=== PATIENT | female | born 1960 | race Caucasian/White ===

== ENCOUNTER 2017-03-12 00:02 | Inpatient (IN) | payer BC ==
[~2017-03-12] VITALS: Ht 170.2 cm; Wt 59.4 kg
[2017-03-12] VITALS (91 sets, daily range): BP systolic 44–196; BP diastolic 29–110
--- NOTE | 2017-03-12 00:02 | NUR ---
BIBA TO ER BED 3
--- NOTE | 2017-03-12 00:04 | NUR ---
56 YO F BIBA FULL ARREST, SEE CODE SHEAT.
--- NOTE | 2017-03-12 00:30 | NUR ---
PT CHRIS DOWN, PULSE LOST. CALLED BLUE CALLED, SEE CODE SHEAT.
--- NOTE | 2017-03-12 00:33 | NUR ---
POST CODE ASSESSMENT DONE. PULSE PRESENT VERYFIED BY ER MD WITH DROPPLER. PT TACHY ON MONITOR, REFER TO CODE SHEAT FOR VS.
[2017-03-12 00:38] LABS: HEMATOCRIT 41.5 % (36-48); HEMOGLOBIN 13.4 g/dL (12.0-16.0); MEAN CORPUSCULAR HEMOGLOBIN 29 pg (27-31); MEAN CORPUSCULAR HGB CONC 32 g/dL (33-37); MEAN CORPUSCULAR VOLUME 90 fL (80-94); PLATELET COUNT (AUTO) 264 K/uL (140-450); RED BLOOD CELL COUNT(AUTO) 4.61 MIL/uL (4.20-5.40); RED CELL DISTRIBUTION WIDTH 13.1 % (11.6-13.7); WHITE BLOOD COUNT (AUTO) 7.6 K/uL (4.8-10.8)
[2017-03-12] MEDS ORDERED: EPINEPHrine 1:1000 1 MG in DEXTROSE 5% 250 ML IV SCH (00:45)
--- NOTE | 2017-03-12 00:45 | NUR ---
PT PLACED ON VENTILATOR. VENT SETTING Fio2 60, VT 600, R/RATE 14, FLOW 40, PEEP 5 AND PMAX 60.
[2017-03-12 00:53] LABS: BAND % (MANUAL) 10 % (0-8); EOSINOPHILS % (MANUAL) 4 % (0-4); LYMPHOCYTES % (MANUAL) 72 % (20-46); MONOCYTES % (MANUAL) 6 % (5-12); NEUTROPHILS % (MANUAL) 8 (43-65)
--- NOTE | 2017-03-12 01:05 | NUR ---
EPINEPHRINE DRIP STARTED AT 1 MCG/MIN, AND NS ML/HR. SEE TITRATIONS FOR F/U.
[2017-03-12 01:16] LABS: INR 1.2 (0.8-1.2); PROTHROMBIN TIME 12.1 secs (10.8-13.4)
[2017-03-12 01:35] LABS: ALBUMIN 2.5 g/dL (3.4-5.0); ANION GAP 22.8 (8-16); CALCIUM 7.4 mg/dL (8.5-10.1); CARBON DIOXIDE 15.9 mmol/L (21-32); CREATININE 1.6 mg/dL (0.6-1.3); POTASSIUM 3.7 mmol/L (3.5-5.1); TOTAL BILIRUBIN 0.2 mg/dL (0.0-1.0); TOTAL PROTEIN, SERUM 5.6 g/dL (6.4-8.2)
--- NOTE | 2017-03-12 01:35 | NUR ---
Kayy esquivel in EDM - 03/12/17 at 0432 by SCARLETT EPINEPHRINE DRIP INCREASED TO 2 MCG/KG/MIN /11.8 ML/HR, AND NS INCREASED TO 250ML/HR D/T DECREASED IN BP.
--- NOTE | 2017-03-12 01:35 | NUR ---
EPINEPHRINE DRIP INCREASED TO 2 MCG/MIN /11.8 ML/HR, AND NS INCREASED TO 250ML/HR D/T DECREASED IN BP.
--- NOTE | 2017-03-12 01:39 | NUR ---
RECEIVED PATIENT IN ER FROM PARAMEDICS. PATIENT WAS UNRESPONSIVE AND CPR DONE IN ER. INTUBATION DONE BY ER DOCTOR AND RT CONNIE AND BRIANNA PRESENT. PATIENT HAS 7.5 ETT AT 23 CM LIP LINE. XRAY DONE TO VERIFY TUBE POSITION. PATIENT PLACED ON VENT. PATIENT BP WAS ELEVATED .
[2017-03-12] MEDS ORDERED: NACL 0.9% 1,000 ML IV ONE (01:40)
--- NOTE | 2017-03-12 01:42 | NUR ---
EPINEPHRINE INCREASED TO 3 MCG/MIN.
--- NOTE | 2017-03-12 01:56 | NUR ---
EPINEPHRINE TITRATED TO 4 MCG/MIN/.
[2017-03-12] MEDS ORDERED: DOPamine 400 MG/D5W PREMIX 250 ML IV ONE ×2 (02:14→03:00)
--- NOTE | 2017-03-12 02:17 | NUR ---
DOPAMINE STARTED 5MCG/KG/MIN PER ER MD VERBAL ORDERS.
--- NOTE | 2017-03-12 02:29 | NUR ---
DOPAMINE INCREASED TO 10MCG/KG/MIN THROUGH IO.
--- NOTE | 2017-03-12 02:30 | NUR ---
Noted IV site left upper arm with epinephrine and dopamine infusing extravasated. Site is cool, swollen, ecchymotic and hard. Notified Dr Lentz. Regitine protocol to be implemented.
--- NOTE | 2017-03-12 02:40 | NUR ---
ER MD NOTIFIED OF INCREASED IN HR AFTER INCREASING DOPAMINE DRIP. PER MD TO CONT MONITORING PT.
--- NOTE | 2017-03-12 02:41 | NUR ---
EPINEPHRINE TITRATED TO 3MCG/MIN.
[2017-03-12 02:43] LABS: BLOOD GAS PCO2 45.7 mmHg (20-50); BLOOD GAS PO2 112.8 mmHg
[2017-03-12] MEDS ORDERED: PHENTOLAMINE 5 MG/2 ML VIAL ONE (02:43)
[2017-03-12 02:44] LABS: BLOOD GAS HCO3 15.6 mmol/L; BLOOD GAS O2 SAT% 97.1 % (92.0-98.5)
--- NOTE | 2017-03-12 02:44 | NUR ---
DOPAMINE TITRATED TO 7MCG/KG/MIN.
[2017-03-12] MEDS ORDERED: PHENTOLAMINE 5 MG/2 ML VIAL SUBQ ONE (03:00)
--- NOTE | 2017-03-12 03:00 | NUR ---
EPINEPHRINE TITRATED TO 2MCG/MIN.
[2017-03-12] MEDS ORDERED: NACL 0.9% 1,000 ML IV SCH (03:11)
[2017-03-12] MEDS ORDERED: MORPHINE SULFATE 2 MG/ML SYR IVP PRN ×2 (03:15→10:25)
[2017-03-12] MEDS ORDERED: DOCUSATE SODIUM 100 MG GELCAP PO PRN ×2 (03:15→10:25)
[2017-03-12] MEDS ORDERED: HYDROcodone/APAP 7.5/325 MG 1 TAB PO PRN ×2 (03:15→10:25)
[2017-03-12] MEDS ORDERED: ONDANSETRON 4 MG/2 ML VIAL IM/IVP PRN ×2 (03:15→10:25)
[2017-03-12] MEDS ORDERED: ACETAMINOPHEN 325 MG TAB PO PRN ×2 (03:15→10:25)
--- NOTE | 2017-03-12 03:19 | NUR ---
DOPAMINE TITRATED TO 10 MCG/KG/MIN.
--- NOTE | 2017-03-12 03:23 | NUR ---
EPINEPHRINE TITRATED TO 4 MCG/MIN, AND DOPAMINE TITRATED TO 15 MCG/KG/MIN.
--- NOTE | 2017-03-12 03:30 | NUR ---
CONSENT FOR CENTRAL LINE OBTAINED BY CHARGE NURSE FROM FAMILY, WELL FAMILY NOTIFIED BY CHARGE NURSE OF INFILTRATION TO R UPPER ARM.
--- NOTE | 2017-03-12 03:50 | NUR ---
Patient will be admitted to care of DR CARDENAS. Admited to ICU. Will go to roomICU 5. Belongings list completed. Report to NAA GARCIA.
--- NOTE | 2017-03-12 03:56 | NUR ---
PT TRASFERED TO ICU VIA GURNEY. BVM BY RT. ACCOMPANIED BY ME PRIMARY NURSE, EMT, AND CHARGE NURSE. LENS EXAMINER ON GURNEY.
--- NOTE | 2017-03-12 04:00 | NUR ---
PT ARRIVED ON UNIT FROM ER VIA GURNEY AT THIS TIME. PT UNRESPONSIVE. PUPILS ARE FIXED AND DILATED. EXTREMITIES ARE FLACCID. PT IS ETT TO VENT AT THIS TIME. CURRENT SETTINGS AT FIO2 60%, VT 600, AC 14, PEEP 5 WITH NO S/S OF ACUTE RESP DISTRESS NOTED AT THIS TIME. GROOVING LATHE TENDER SHOWS ST AT THIS TIME OF HR 138. PT HAS NG-TUBE IN RIGHT NARE. PT HAS RIGHT LEG I/O IV SITE RUNNING NS @60ML/HR, EPINEPHRINE DRIP 4MCG/MIN, DOPAMINE AT 15MCG/MIN AT THIS TIME. PT LEFT UPPER ARM REDNESS NOTED. PT HAS LOMBARDI CATHETER IN PLACE DRAINING YELLOW URINE VIA GRAVITY. BED IN LOW POSITION. HOB UP 30 DEGREES. WILL CONTINUE TO CLOSELY MONITOR.
[2017-03-12 04:06] LABS: APPEARANCE,URINE SL CLOUDY (CLEAR); BILIRUBIN,URINE NEGATIVE (NEGATIVE); BLOOD, URINE 3+ (NEGATIVE); COLOR,URINE YELLOW (YELLOW); LEUKOCYTE ESTERASE ,URINE NEGATIVE (NEGATIVE); NITRITE, URINE NEGATIVE (NEGATIVE); PH,URINE 6.5 (5.0-9.0); PROTEIN,URINE 2+ (NEGATIVE); UGLUCOSE 1+ (NEGATIVE); UROBILINOGEN,URINE 0.2 EU/dL (0.2 - 1)
--- NOTE | 2017-03-12 04:28 | NUR ---
ER MD DR MOTLEY HERE ON THE UNIT TO START CENTRAL LINE INSERTION. PER DR MOTLEY OK TO START ON LEVOPHED DRIP. WILL FOLLOW DR'S ORDERS
[2017-03-12] MEDS ORDERED: NOREPINEPHRINE 4 MG/4 ML VIAL IV ONE (04:36)
[2017-03-12] MEDS: NOREPINEPHRINE 8 MG in DEXTROSE 5% 250 ML IV PRN ×4 (04:45→19:51)
[2017-03-12 04:51] LABS: BACTERIA,URINE FEW /HPF (None Seen); WBC,URINE 0-5 (RARE) /HPF (0-5)
[2017-03-12 04:52] LABS: URINE AMORPHOUS URATE 4+ /HPF (None Seen)
[2017-03-12] MEDS ORDERED: DOPamine 400 MG/D5W PREMIX 250 ML IV SCH (05:00)
--- NOTE | 2017-03-12 05:05 | NUR ---
TOBIAS MOTLEY COMPLETED CENTRAL LINE INSERTION. PER TOBIAS ALBRIGHT OK TO USE FEMORAL CENTRAL LINE.
--- NOTE | 2017-03-12 05:30 | NUR ---
DAUGHTER LINDA AND SON JAKE ON UNIT AT THIS TIME.
[2017-03-12 06:21] LABS: CHOL/HDL RATIO 5.1 (1-4.5); FREE T4 (FREE THYROXINE) 0.7 ng/dL (0.76-1.46); MAGNESIUM 2.8 mg/dL (1.8-2.4); THYROID STIMULATING HORMONE 2.59 uIU/mL (0.34-3.74)
--- NOTE | 2017-03-12 06:31 | NUR ---
DOPAMINE TAPERED AND DISCONTINUED AT THIS TIME.
--- NOTE | 2017-03-12 06:32 | NUR ---
DR ALMEIDA HERE ON THE UNIT TO SEE THE PATIENT AT BEDSIDE.
[2017-03-12 06:45] LABS: PHOSPHORUS 9.1 mg/dL (2.5-4.9)
--- NOTE | 2017-03-12 06:47 | NUR ---
RECEIVED PT ON CARESCAPE ON A/C 14 VT 600 PEEP5 FIO2 60 ALARMS ARE 0N AND FUNCTIONAL BMV HOB PTS ET TUBE SIZE 7.5 IS SECURE 23 CM ANCHOR FAST IN PLACE BS DIMINISHED I\L SX NON-PRODUCTIVE VENT PLUGGED INTO RED OUTLET PT IN HF NOT AWAKE AT THIS TIME NO APPARENT DISTRESS NOTED
[2017-03-12 06:59] LABS: HEMATOCRIT 43.9 % (36-48); HEMOGLOBIN 14.4 g/dL (12.0-16.0); MEAN CORPUSCULAR HEMOGLOBIN 29 pg (27-31); MEAN CORPUSCULAR HGB CONC 33 g/dL (33-37); MEAN CORPUSCULAR VOLUME 89 fL (80-94); PLATELET COUNT (AUTO) 346 K/uL (140-450); RED BLOOD CELL COUNT(AUTO) 4.94 MIL/uL (4.20-5.40); RED CELL DISTRIBUTION WIDTH 13.1 % (11.6-13.7); WHITE BLOOD COUNT (AUTO) 21.3 K/uL (4.8-10.8)
--- NOTE | 2017-03-12 07:10 | NUR ---
BERNARDB RESULTS GIVEN TO DR. ALMEIDA
[2017-03-12 07:14] LABS: BLOOD GAS PCO2 43.7 mmHg (20-50); BLOOD GAS PO2 91.6 mmHg
[2017-03-12 07:15] LABS: BLOOD GAS BASE EXCESS -12.1 mmol/L (-2.0-2.0); BLOOD GAS HCO3 15.9 mmol/L
[2017-03-12 07:20] LABS: BAND % (MANUAL) 18 % (0-8); NEUTROPHILS % (MANUAL) 74 (43-65)
[2017-03-12 07:21] LABS: EOSINOPHILS % (MANUAL) 1 % (0-4); LYMPHOCYTES % (MANUAL) 5 % (20-46); MONOCYTES % (MANUAL) 2 % (5-12)
--- NOTE | 2017-03-12 07:23 | NUR ---
ENDORSED PLAN OF CARE TO DAY NURSE NAA PEDRO FOR TRANSFER OF CARE. PT VITALS STABLE AT THIS TIME
--- NOTE | 2017-03-12 07:25 | NUR ---
RECEIVED REPORT FROM JOSE JACOME. PT UNRESPONSIVE TO NAME STIMULI OR TACTILE STIMULI. PUPILS ARE FIXED AND DILATED. NO GAG REFLEX. EXTREMITIES ARE FLACCID. PT IS ETT TO VENT AT THIS TIME. CURRENT SETTINGS AT FIO2 60%, VT 600, AC 14, PEEP 5 WITH NO S/S OF ACUTE RESP DISTRESS NOTED . BEDSIDE MONITOR SHOWS ST. NG-TUBE IN RIGHT NARE. CENTRAL LINE IN RIGHT FEMORAL RUNNING NS @60ML/HR AND LEVOPHED AT 30 MCG/MIN. PT LEFT UPPER ARM REDNESS NOTED. LOMBARDI CATHETER IN PLACE DRAINING YELLOW URINE VIA GRAVITY. BED IN LOW POSITION. HOB UP 30 DEGREES. WILL CONTINUE TO CLOSELY MONITOR.
[2017-03-12 07:29] LABS: ALBUMIN 2.7 g/dL (3.4-5.0); ANION GAP 15.6 (8-16); CALCIUM 7.2 mg/dL (8.5-10.1); CARBON DIOXIDE 19.4 mmol/L (21-32); CREATININE 1.6 mg/dL (0.6-1.3); TOTAL BILIRUBIN 0.3 mg/dL (0.0-1.0); TOTAL PROTEIN, SERUM 5.9 g/dL (6.4-8.2)
--- NOTE | 2017-03-12 07:30 | NUR ---
0730 TO 0743 PT TAKEN AND RETURNED TO C-SCAN WITHOUT INCIDENT Addendum: 03/12/17 at 0754 by Joselyn Lima RT RETURNED TI ICU BED 5
[2017-03-12] MEDS ORDERED: DEXTROSE 50% 50 ML SYR IVP PRN (08:20)
[2017-03-12] MEDS ORDERED: CALCIUM ACETATE 667 MG TAB NG SCH (08:21)
[2017-03-12] MEDS ORDERED: LORazepam 50 MG in NACL 0.9% 25 ML IV PRN (08:25)
[2017-03-12] MEDS ORDERED: SODIUM BICARBONATE 8.4% PFS 50 MEQ/50 ML SYR IVP SCH (08:53)
--- NOTE | 2017-03-12 09:08 | NUR ---
PATIENT HAS BEEN SCREENED AND CATEGORIZED HIGH NUTRITION RISK. PATIENT WILL BE SEEN WITHIN 1-2 DAYS OF ADMISSION. 03/12/17-03/13/[address]
[2017-03-12 09:12] LABS: MAGNESIUM 1.9 mg/dL (1.8-2.4); PHOSPHORUS 3.2 mg/dL (2.5-4.9)
--- NOTE | 2017-03-12 09:12 | NUR ---
VENT CHECK BS DIMINISHED AIRWAY IS PATENT
[2017-03-12] MEDS ORDERED: PANTOPRAZOLE 40 MG INJ VIAL IVP SCH (09:16)
[2017-03-12] MEDS: KCL 20 MEQ/WATER INJ PREMIX 100 ML IV SCH ×2 (09:31→13:26)
[2017-03-12] MEDS ORDERED: PHENYTOIN 1,000 MG in NACL 0.9% 100 ML IV SCH ×2 (10:00→11:30)
[2017-03-12] MEDS ORDERED: PHENYTOIN 1,000 MG in NACL 0.9% 100 ML IV ONE (10:15)
[2017-03-12] MEDS ORDERED: PHEN100C3 PO ×2 (10:27→11:11)
--- NOTE | 2017-03-12 10:41 | NUR ---
VENT CHECK BS DIMINISHED AIRWAY IS PATENT
[2017-03-12] MEDS ORDERED: ALBU0.0912 IH (11:12)
[2017-03-12] MEDS: NACL 0.9% 1,000 ML IV SCH ×2 (11:15→17:32)
--- NOTE | 2017-03-12 11:39 | NUR ---
IN TO SEE PT, NOTIFIED PT BP 86/54, HR 105 AT THIS TIME.
[2017-03-12] MEDS ORDERED: OSMITROL 25% 12.5 GM/50 ML VIAL IV ONE (11:40)
[2017-03-12] MEDS ORDERED: PHENYLEPHRINE 10 MG/ML VIAL IV PRN (11:45)
--- NOTE | 2017-03-12 11:48 | NUR ---
03/12/17 RD INITIAL ASSESSMENT COMPLETED PLEASE REFER TO NUTRITION ASSESSMENT UNDER CARE ACTIVITY FOR ESTIMATED NUTRITIONAL NEEDS. 1. WILL HONOR FAMILY DECISIONS REGARDING NUTRITION SUPPORT 2. WHEN MEDICALLY FEASIBLE AND PT TO REMAIN INTUBATED, CONSIDER TF VIA NGT - FIBERSOURCE HN TO START AT 30 ML/HR, ADVANCE TOLERATED TO A GOAL RATE OF 65 ML/HR + ADD PROSOURCE 3X/DAILY (PROVIDES 2052 KCAL, 129 G PROTEIN, 1260 ML FREE WATER - MEETS 100% KCAL+PROTEIN ESTIMATED NEEDS) 3. RD TO FOLLOW-UP 2-3 DAYS; HIGH RISK BENY MELENDEZ, NEETU
[2017-03-12] MEDS ORDERED: EPINEPHrine PFS 0.1 MG/ML SYR IVP ONE (12:00)
[2017-03-12] MEDS ORDERED: CODE BLUE PARTICIPANT 1 EA MISC MC ONE (12:00)
[2017-03-12] MEDS: BLOOD GLUCOSE MONITORING 1 DEV DEV FS SCH ×3 (12:18→21:02)
[2017-03-12] MEDS: INSULIN LISPRO SLIDING SCALE 100 UNITS/ML VIAL SUBQ PRN (12:18)
--- NOTE | 2017-03-12 12:18 | NUR ---
FINGER BLOOD SUGAR CHECKED 157, SLIDING SCALE INSULIN 3 UNITS GIVEN.
[2017-03-12] MEDS: PIPER/TAZO 2.25GM/D5W PREMIX 50 ML IV SCH ×2 (12:19→17:32)
[2017-03-12] MEDS ORDERED: PHENYLEPHRINE 10 MG/ML VIAL IV ONE (12:25)
[2017-03-12] MEDS ORDERED: MANNITOL IV SCH (13:00)
[2017-03-12] MEDS ORDERED: PHENYLEPHRINE 10 MG in NACL 0.9% 250 ML IV PRN (13:10)
--- NOTE | 2017-03-12 13:21 | NUR ---
VENT CHECK BS DIMINISHED PT NOT AWAKE AIRWAY IS PATENT
--- NOTE | 2017-03-12 14:00 | NUR ---
TEGAN FROM [facility] NOTIFIED OF FAMILY'S PLAN TO EXTUBATE PT TOMORROW.
--- NOTE | 2017-03-12 14:39 | NUR ---
DR HITCHCOCK DECREASED VT TO 550
--- NOTE | 2017-03-12 15:21 | NUR ---
VENT CHECK BS DIMINISHED AIRWAY IS PATENT FAMILY MEMBER BEDSIDE
[2017-03-12] MEDS: PHENYLEPHRINE 40 MG in NACL 0.9% 250 ML IV PRN ×2 (16:06→19:50)
--- NOTE | 2017-03-12 16:30 | NUR ---
DAJUAN FROM [facility] HERE TO SEE PT.
--- NOTE | 2017-03-12 16:32 | NUR ---
REPORTED ABG TO DR MALDONADO
[2017-03-12 16:34] LABS: BLOOD GAS HCO3 17.9 mmol/L; BLOOD GAS PH 7.138 (7.35-7.45); BLOOD GAS PO2 84.7 mmHg
[2017-03-12 16:35] LABS: BLOOD GAS BASE EXCESS -11.3 mmol/L (-2.0-2.0); BLOOD GAS O2 SAT% 95.3 % (92.0-98.5)
--- NOTE | 2017-03-12 16:53 | NUR ---
REPORTED ABG TO DR HITCHCOCK INCREASE RR TO 18 NO ABGS
--- NOTE | 2017-03-12 16:56 | NUR ---
VENT CHECK BS DIMINISHED I\L LAVAGE AND SX SM YELLOW PT NOT AWAKE
--- NOTE | 2017-03-12 17:00 | NUR ---
FINGER BLOOD SUGAR CHECKED 139, NO INSULIN COVERAGE NEEDED.
[2017-03-12] MEDS: CALCIUM ACETATE 667 MG TAB NG SCH (17:32)
--- NOTE | 2017-03-12 18:00 | NUR ---
PT IS STILL UNRESPONSIVE, NO S/S OF RESPIRATORY DISTRESS NOTED, TURNED AND REPOSITIONED PT, CLEANED PT. PT ON LEVOPHED AND ZORA SYNEPHRINE DRIP. BP IN NORMAL RANGE AT THIS TIME.
--- NOTE | 2017-03-12 19:03 | NUR ---
REPORT GIVEN TO JOSE JACOME.
--- NOTE | 2017-03-12 19:15 | NUR ---
RECEIVED REPORT FROM DAY NURSE WILLIS, RN FOR TRANSFER OF CARE. PT IS UNRESPONSIVE TO PAIN AND VERBAL STIMULI. PT IS TRACH TO VENT WITH CURRENT SETTINGS AT FIO2 60%, VT 550, AC 18, PEEP 5. WITH NO S/S OF ACUTE RESP DISTRESS NOTED AT THIS TIME. MOBILE MECHANIC SHOWS SR AT THIS TIME. PT HAS RIGHT FEMORAL TLC RUNNING NS AT 140ML/HR, ATIVAN DRIP AT 1MG/HR, LEVOPHED AT 26MCG/KG/MIN AND ZORA-SYNEPHRINE AT 106MCG/MIN. PT HAS NG-TUBE TO RIGHT NARE. PT HAS LOMBARDI CATHETER IN PLACE DRAINING YELLOW URINE VIA GRAVITY. SCDS IN PLACE. BED IN LOW POSITION. HOB UP 30 DEGREES. SAFETY PRECAUTIONS MAINTAINED. WILL CONTINUE TO CLOSELY MONITOR.
--- NOTE | 2017-03-12 19:45 | NUR ---
DAJUAN FROM [facility] HERE ASSISTED IN OBTAINING BLOOD SAMPLES FOR THEIR LABS. IV DRIPS MEDS PAUSED AT THIS TIME. WILL RESUME IMMEDIATELY AFTER COMPLETING LAB DRAWS.
--- NOTE | 2017-03-12 19:51 | NUR ---
RESUMED IV DRIP MEDICATIONS
--- NOTE | 2017-03-12 19:58 | NUR ---
PT OLDEST SISTER ZAIRE AND NUMEROUS FAMILY MEMBERS AND FRIENDS ON UNIT TO SEE PATIENT.
[2017-03-12] MEDS: PHENYTOIN 100 MG CAPER PO SCH (20:47)
--- NOTE | 2017-03-12 21:40 | NUR ---
2130 INCREASED FIO2 TO 100% TO ACHIEVE PAO2 OF 100, PREVIOUS PAO2 ON PAST ABGS INDICATE DOWNWARD TREND. LAST ABG ON 60% WAS 84
--- NOTE | 2017-03-12 22:06 | NUR ---
PT RESTING IN BED. NO SOB NOTED AT THIS TIME. TITRATED LEVOPHED DRIP DOWN TO 24 MCG/KG/MIN. WILL CONTINUE TO CLOSELY MONITOR.
--- NOTE | 2017-03-12 23:04 | NUR ---
[facility] RAILROAD WORKER ON UNIT TO VICE PRESIDENT SALES AND MARKETING SEROLOGY LAB WORK.
[2017-03-13] VITALS (85 sets, daily range): BP systolic 62–140; BP diastolic 25–77
--- NOTE | 2017-03-13 00:01 | NUR ---
RESIDENT DR LIANG HERE ON THE UNIT TO SEE PATIENT.
[2017-03-13] MEDS: PIPER/TAZO 2.25GM/D5W PREMIX 50 ML IV SCH ×5 (00:05→23:42)
[2017-03-13] MEDS: NACL 0.9% 1,000 ML IV SCH ×2 (00:06→07:16)
--- NOTE | 2017-03-13 00:16 | NUR ---
PT RESTING IN BED AT THIS TIME. NO SOB NOTED. PT REPOSITIONED. VAP ORAL KIT PROVIDED. WILL CONTINUE TO CLOSELY MONITOR.
[2017-03-13] MEDS: NOREPINEPHRINE 8 MG in DEXTROSE 5% 250 ML IV PRN ×4 (01:36→20:03)
[2017-03-13] MEDS: PHENYLEPHRINE 40 MG in NACL 0.9% 250 ML IV PRN ×2 (02:12→17:32)
--- NOTE | 2017-03-13 02:14 | NUR ---
PT RESTING IN BED. NO S/S OF ACUTE RESP DISTRESS NOTED AT THIS TIME. SAFETY PRECAUTIONS MAINTAINED. WILL CONTINUE TO CLOSELY MONITOR.
--- NOTE | 2017-03-13 03:59 | NUR ---
MORNING CARE RENDERED. PT CLEANED. LINEN CHANGED. VAP ORAL KIT PROVIDED. NO SOB NOTED AT THIS TIME. PT SUCTIONED. NO GAG REFLEX NOTED. BED IN LOW POSITION. HOB UP. WILL CONTINUE TO CLOSELY MONITOR.
--- NOTE | 2017-03-13 04:30 | NUR ---
CHRISTIE HOPSON FROM [facility] CALLED AND WAS UPDATED ABOUT PT'S CURRENT STATUS.
[2017-03-13] MEDS: PHENYTOIN 100 MG CAPER PO SCH ×3 (05:06→21:43)
--- NOTE | 2017-03-13 05:10 | NUR ---
CHEST XRAY DONE AT BEDSIDE.
--- NOTE | 2017-03-13 05:39 | NUR ---
RESIDENT DR JIMÉNEZ HERE ON THE UNIT TO SEE PATIENT.
[2017-03-13] MEDS: BLOOD GLUCOSE MONITORING 1 DEV DEV FS SCH ×6 (06:40→23:02)
--- NOTE | 2017-03-13 06:47 | NUR ---
REC'D PT ON CARESCAPE VENT SETTING AC18 VT 550 PEEP 5 FIO2 100% ALARMS ON AND FUNCTIONING PROPERLY, AMBU BAG AT SIDE OF VENTILATOR AND VENTILATOR IS PLUGGED INTO RED OUTLET, SXN PT SMALL AMT OF THIN BROWN SECRETIONS, B\S ARE DIMINISHED BILATERALLY, PT IS ORALLY INTUBATED WITH 7.5 ET TUBE SECURED WITH ANCHOR FAST AT 23 CM AT LEFT CORNER OF MOUTH AND SKIN INTEGRITY IS INTACT PT IS RESTING WITH NO SIGNS OF DISTRESS NOTED AT THIS TIME
--- NOTE | 2017-03-13 07:15 | NUR ---
ENDORSED PLAN OF CARE TO NAA SOLARES FOR TRANSFER OF CARE. PT VITALS STABLE AT THIS TIME.
--- NOTE | 2017-03-13 07:45 | NUR ---
SEEN BY DR. WALTERS AND HIS TEAM..
--- NOTE | 2017-03-13 08:00 | NUR ---
BELLE IN THE UNIT, TO MEET WITH FAMILY.
[2017-03-13] MEDS: CALCIUM ACETATE 667 MG TAB NG SCH (08:15)
[2017-03-13] MEDS: PANTOPRAZOLE 40 MG INJ VIAL IVP SCH (08:26)
--- NOTE | 2017-03-13 08:34 | NUR ---
VENT CHECK, NO SXN REQUIRED AT THIS TIME, B\S DIMINISHED AIRWAY IS PATENT
[2017-03-13] MEDS ORDERED: SODIUM BICARBONATE 8.4% 100 MEQ in NACL 0.45% 1,000 ML IV SCH (08:50)
[2017-03-13 09:03] LABS: HEMATOCRIT 42.3 % (36-48); HEMOGLOBIN 13.7 g/dL (12.0-16.0); MEAN CORPUSCULAR HEMOGLOBIN 29 pg (27-31); MEAN CORPUSCULAR HGB CONC 32 g/dL (33-37); MEAN CORPUSCULAR VOLUME 89 fL (80-94); PLATELET COUNT (AUTO) 156 K/uL (140-450); RED BLOOD CELL COUNT(AUTO) 4.76 MIL/uL (4.20-5.40); RED CELL DISTRIBUTION WIDTH 13.6 % (11.6-13.7); WHITE BLOOD COUNT (AUTO) 12.9 K/uL (4.8-10.8)
--- NOTE | 2017-03-13 09:07 | NUR ---
abg drawn on lr without incident and at [address] echevarria with no changes made
[2017-03-13] MEDS ORDERED: FUROSEMIDE 40 MG/4 ML VIAL IVP SCH (09:14)
[2017-03-13 09:20] LABS: BLOOD GAS PCO2 45.2 mmHg (20-50); BLOOD GAS PH 7.192 (7.35-7.45); BLOOD GAS PO2 107.6 mmHg
[2017-03-13 09:21] LABS: BLOOD GAS BASE EXCESS -10.9 mmol/L (-2.0-2.0)
[2017-03-13 09:22] LABS: BLOOD GAS O2 SAT% 97.9 % (92.0-98.5)
--- NOTE | 2017-03-13 09:36 | NUR ---
LASIX 40 MG IVP GIVEN ORDERED.
[2017-03-13 09:44] LABS: BAND % (MANUAL) 20 % (0-8); LYMPHOCYTES % (MANUAL) 17 % (20-46); NEUTROPHILS % (MANUAL) 50 (43-65)
[2017-03-13 09:45] LABS: EOSINOPHILS % (MANUAL) 5 % (0-4); MONOCYTES % (MANUAL) 8 % (5-12)
--- NOTE | 2017-03-13 10:31 | NUR ---
FAXED INITIAL REVIEW TO [facility] [phone] PHONE [phone] PER SIDRA, SENIOR MANAGING DIRECTOR, AUTH FOR I DAY GIVEN ON 03/12/17 NO CM ASSIGNED YET AUTH NO [id number]
[2017-03-13 10:34] LABS: ANION GAP 13.5 (8-16); CALCIUM 7.3 mg/dL (8.5-10.1); CARBON DIOXIDE 21.4 mmol/L (21-32); POTASSIUM 4.9 mmol/L (3.5-5.1)
[2017-03-13 10:40] LABS: ALBUMIN 1.9 g/dL (3.4-5.0); BILIRUBIN,DIRECT 0.8 mg/dL (0.0-0.3); TOTAL BILIRUBIN 1.2 mg/dL (0.0-1.0); TOTAL PROTEIN, SERUM 4.8 g/dL (6.4-8.2)
--- NOTE | 2017-03-13 11:08 | NUR ---
VENT CHECK, SXN PT SMALL AMT OF CLEAR SECRETIONS, B\S ARE DIMINISHED AND RN BECK AT BEDSIDE
[2017-03-13 12:36] LABS: HEMOGLOBIN A1C 5.7 % (4.8-5.6)
[2017-03-13] MEDS ORDERED: INSULIN HUMAN REGULAR 100 UNITS in NACL 0.9% 100 ML IV SCH (12:55)
[2017-03-13] MEDS ORDERED: DOPamine 400 MG/D5W PREMIX 250 ML IV SCH ×2 (13:05→15:00)
--- NOTE | 2017-03-13 13:05 | NUR ---
VENT CHECK, NO SXN NEEDED B\S ARE DIMINISHED BILATERALLY, PT'S HEART RATE HAS INCREASED TO 129 BPM JUAN PABLO ALATORRE AT BEDSIDE
--- NOTE | 2017-03-13 13:45 | NUR ---
MOVED PT FROM [facility] 5 TO ICU 3 PT BAGGED WITH 100% FIO2 BY DR. ALMEIDA AND PLACED ON CARESCAPE VENT WITH SAME VENT SETTINGS BY RT. DE LA O
--- NOTE | 2017-03-13 14:10 | NUR ---
CONSENT FOR A-LINE OBTAIN FROM PTBenjamin JOSEPH.
--- NOTE | 2017-03-13 14:20 | NUR ---
A-LINE INSERTED BY DR. ALMEIDA.PT REMAIN HYPOTENSIVE. [facility] ALSO AT BEDSIDE.
--- NOTE | 2017-03-13 15:10 | NUR ---
VENT CHECK, SXN PT FOR C&S LARGE AMT OF THIN BLOODY SECRETIONS, NAA GARNICA AND NAA SOLARES AT BEDSIDE
[2017-03-13] MEDS ORDERED: NACL 0.9% 1,000 ML IV SCH ×2 (15:40→18:55)
--- NOTE | 2017-03-13 15:51 | NUR ---
SS NOTE: I SPOKE WITH PT'S DTR, LINDA AND SHE STATED THAT SHE WOULD LIKE INFORMATION FOR SUPPORT SERVICES FOR HER SON WHO IS 12 YEARS OLD. I PLACED THE REQUESTED INFORMATION ON PT'S CHART AND SPOKE WITH PT'S DTR, LINDA AGAIN TO INFORM HER OF THAT SO PT'S ASSIGNED RN CAN GIVE THAT TO HER WHEN SHE COMES IN TO VISIT PT, SHE VERBALIZED UNDERSTANDING.
[2017-03-13 16:37] LABS: T4 (THYROXINE) 4.4 ug/dL (4.5-12.0)
--- NOTE | 2017-03-13 17:00 | NUR ---
VENT CHECK, NO SXN REQUIRED AT THIS TIME, B\S CLEAR
[2017-03-13] MEDS: DEXT 5% /NACL 0.9% 1,000 ML IV SCH ×2 (17:34→20:23)
[2017-03-13] MEDS: HETASTARCH 6% 500 ML IV SCH ×2 (17:38→21:03)
--- NOTE | 2017-03-13 18:50 | NUR ---
PT MEAN PRESSUR [address] O2 SAT [address] REICH NOTIFIED.ORDER RECEIVED
--- NOTE | 2017-03-13 18:55 | NUR ---
100ML NS BOLUS ORDER.
[2017-03-13 19:29] LABS: BASOPHILS # (AUTO) 0.1 K/uL (0.00-0.22); EOSINOPHILS # (AUTO) 0.7 K/uL (0-0.4); HEMOGLOBIN 12.1 g/dL (12.0-16.0); LYMPHOCYTES # (AUTO) 1.4 K/uL (2.5-16.5); MEAN CORPUSCULAR HEMOGLOBIN 29 pg (27-31); NEUTROPHILS # (AUTO) 12.7 K/uL (1.8-7.7); RED BLOOD CELL COUNT(AUTO) 4.19 MIL/uL (4.20-5.40)
--- NOTE | 2017-03-13 19:30 | NUR ---
PT REMAIN UNSTABLE CONDITION. REPORT GIVE TO FLORINA JACOME.
[2017-03-13 19:34] LABS: BASOPHILS % (AUTO) 0.6 % (0.0-2.0); EOSINOPHILS % (AUTO) 4.7 % (0.0-4.0); HEMATOCRIT 37.6 % (36-48); LYMPHOCYTES % (AUTO) 9.4 % (20.5-51.1); MEAN CORPUSCULAR HGB CONC 32 g/dL (33-37); MEAN CORPUSCULAR VOLUME 90 fL (80-94); MONOCYTES # (AUTO) 0.5 K/uL (0.8-1.0); MONOCYTES % (AUTO) 3.4 % (1.7-9.3); NEUTROPHILS % (AUTO) 81.9 % (42.2-75.2); PLATELET COUNT (AUTO) 139 K/uL (140-450); RED CELL DISTRIBUTION WIDTH 13.5 % (11.6-13.7); WHITE BLOOD COUNT (AUTO) 15.4 K/uL (4.8-10.8)
--- NOTE | 2017-03-13 19:40 | NUR ---
PATIENT'S BP 75/37, DR. GEE (RESIDENT) NOTIFIED, STATED WE'LL COME OVER THERE IN ICU.
[2017-03-13 19:42] LABS: ANION GAP 14.6 (8-16); CALCIUM 7.1 mg/dL (8.5-10.1); CARBON DIOXIDE 21.2 mmol/L (21-32); CHLORIDE 109 mmol/L (98-107); CREATININE 3.6 mg/dL (0.6-1.3); GFR ARICAN-AMERICAN 17 mL/min (>90); GFR NON ARICAN-AMERICAN 14 mL/min (>90); GLUCOSE 132 mg/dL (74-106); POTASSIUM 4.8 mmol/L (3.5-5.1); SODIUM SERUM 140 mmol/L (136-145); UREA NITROGEN, BLOOD 38 mg/dL (7-18)
[2017-03-13 19:48] LABS: ALANINE AMINOTRANSFERASE 432 U/L (14-59); ALBUMIN 1.5 g/dL (3.4-5.0); ALKALINE PHOSPHATASE 117 U/L (46-116); AMYLASE 69 U/L (25-115); ASPARTATE AMINOTRANSFERASE 266 U/L (15-37); BILIRUBIN,DIRECT 0.8 mg/dL (0.0-0.3); CREATINE KINASE, TOTAL 282 U/L (26-192); LIPASE 131 U/L (73-393); MAGNESIUM 1.2 mg/dL (1.8-2.4); PHOSPHORUS 5.3 mg/dL (2.5-4.9); TOTAL BILIRUBIN 1.2 mg/dL (0.0-1.0); TOTAL PROTEIN, SERUM 4.1 g/dL (6.4-8.2)
[2017-03-13 19:50] LABS: INR 1.5 (0.8-1.2); PARTIAL THROMBOPLASTIN TIME 37.5 secs (22-35.6); PROTHROMBIN TIME 14.8 secs (10.8-13.4)
--- NOTE | 2017-03-13 20:00 | NUR ---
PATIENT NON RESPONSIVE, ST ON THE MONITOR, ETT TO VENT, ON VASOPRESSORS, TLC ON RIGHT FEMORAL PATENT AND INTACT, ARTERIAL LINE ON LEFT FEMORAL INTACT. NGT TO RIGHT NARE INTACT, NPO EXCEPT FOR MEDS. LOMBARDI CATH WITH SCANTY YELLOW URINE OUTPUT. 2 RN'S FROM [facility] HERE IN THE UNIT. FAMILY HERE IN THE UNIT TO SEE THE PATIENT.
[2017-03-13 20:03] LABS: LACTATE DEHYDROGENASE 419 U/L (81-234)
[2017-03-13] MEDS ORDERED: PHENYLEPHRINE 40 MG in NACL 0.9% 250 ML IV PRN (20:10)
[2017-03-13] MEDS ORDERED: HETASTARCH 6% IV ONE (20:10)
[2017-03-13 20:18] LABS: APPEARANCE,URINE SL CLOUDY (CLEAR); BILIRUBIN,URINE NEGATIVE (NEGATIVE); BLOOD, URINE 3+ (NEGATIVE); COLOR,URINE YELLOW (YELLOW); LEUKOCYTE ESTERASE ,URINE 1+ (NEGATIVE); NITRITE, URINE NEGATIVE (NEGATIVE); PROTEIN,URINE 1+ (NEGATIVE); UGLUCOSE NEGATIVE (NEGATIVE); UROBILINOGEN,URINE 0.2 EU/dL (0.2 - 1)
[2017-03-13 20:27] LABS: BACTERIA,URINE 1+ /HPF (None Seen); RBC,URINE 60-80 /HPF (0-5)
[2017-03-13 20:28] LABS: URINE AMORPHOUS URATE 4+ /HPF (None Seen)
--- NOTE | 2017-03-13 20:30 | NUR ---
DR. GEE AND DR. DOBSON WAS HERE AT THE UNIT, MET WITH PATIENT'S FAMILY AND [facility] RN'S. DR. GEE PUT IN NEW ORDERS, TO INCREASE NEOSYNEPHRINE DRIP TO 200 MCG/MIN (75.33 MLS/HR) AND GIVE ANOTHER 500 MLS HESPAN. FAMILY DECIDED TO CHANGE PATIENT'S CODE STATUS TO MODIFIED CODE, NO COMPRESSION.INFORMED DR. GEE OF TROPONIN LEVEL 0.878 AND LACTIC ACID 4.4 THAT WAS CALLED AT [address] DOBSON AND DR. GEE LEFT THE UNIT AT THIS TIME.
--- NOTE | 2017-03-13 21:00 | NUR ---
BLOOD SUGAR VIA FINGERSTICK, 124, NO COVERAGE. URINE OUTPUT 8 MLS.
[2017-03-13] MEDS ORDERED: PHENYTOIN 100 MG CAPER PO ONE (21:21)
--- NOTE | 2017-03-13 23:00 | NUR ---
URINE OUTPUT 4 MLS CLEAR YELLOW URINE.
--- NOTE | 2017-03-13 23:00 | NUR ---
CHECKED BLOOD SUGAR VIA FINGERSTICK, BS 142, NO COVERAGE.
[2017-03-13] MEDS: VASOPRESSIN 20 UNITS in NACL 0.9% 250 ML IV SCH (23:46)
[2017-03-14] VITALS (54 sets, daily range): BP systolic 70–145; BP diastolic 48–137
--- NOTE | 2017-03-14 | NUR ---
URINE OUTPUT 15 CC, URINE SAMPLE SENT TO LAB FOR UA MICROSCOPIC, ALL OTHER 12MN LABS DONE. PATIENT'S FAMILY AND FRIENDS CONTINUE TO COME AND VISIT THE PATIENT.
[2017-03-14 00:21] LABS: HEMATOCRIT 31.8 % (36-48); HEMOGLOBIN 10.1 g/dL (12.0-16.0); MEAN CORPUSCULAR HEMOGLOBIN 28 pg (27-31); MEAN CORPUSCULAR HGB CONC 32 g/dL (33-37); MEAN CORPUSCULAR VOLUME 89 fL (80-94); PLATELET COUNT (AUTO) 113 K/uL (140-450); RED BLOOD CELL COUNT(AUTO) 3.58 MIL/uL (4.20-5.40); RED CELL DISTRIBUTION WIDTH 13.7 % (11.6-13.7)
[2017-03-14 00:25] LABS: BLOOD GAS PCO2 41.8 mmHg (20-50); BLOOD GAS PO2 65.3 mmHg
[2017-03-14 00:26] LABS: BLOOD GAS BASE EXCESS -16.2 mmol/L (-2.0-2.0); BLOOD GAS HCO3 12.7 mmol/L; BLOOD GAS O2 SAT% 92.5 % (92.0-98.5)
[2017-03-14 00:40] LABS: BILIRUBIN,URINE NEGATIVE (NEGATIVE); BLOOD, URINE 3+ (NEGATIVE); COLOR,URINE YELLOW (YELLOW); LEUKOCYTE ESTERASE ,URINE NEGATIVE (NEGATIVE); NITRITE, URINE NEGATIVE (NEGATIVE); PROTEIN,URINE 2+ (NEGATIVE); UGLUCOSE NEGATIVE (NEGATIVE); UROBILINOGEN,URINE 0.2 EU/dL (0.2 - 1)
[2017-03-14 00:41] LABS: ALBUMIN 1.1 g/dL (3.4-5.0); ANION GAP 14.8 (8-16); BILIRUBIN,DIRECT 0.8 mg/dL (0.0-0.3); CALCIUM 6.5 mg/dL (8.5-10.1); CARBON DIOXIDE 17.5 mmol/L (21-32); CREATININE 3.8 mg/dL (0.6-1.3); MAGNESIUM 1.1 mg/dL (1.8-2.4); PHOSPHORUS 5.1 mg/dL (2.5-4.9); TOTAL BILIRUBIN 1.1 mg/dL (0.0-1.0); TOTAL PROTEIN, SERUM 3.1 g/dL (6.4-8.2)
[2017-03-14] MEDS ORDERED: WATER STERILE IV SCH (00:45)
[2017-03-14] MEDS ORDERED: SODIUM BICARBONATE IV SCH (00:45)
[2017-03-14 00:46] LABS: INR 1.7 (0.8-1.2); PARTIAL THROMBOPLASTIN TIME 49.6 secs (22-35.6); PROTHROMBIN TIME 17.3 secs (10.8-13.4)
[2017-03-14] MEDS: PHENYLEPHRINE 40 MG in NACL 0.9% 250 ML IV PRN ×3 (00:52→08:50)
[2017-03-14] MEDS: NOREPINEPHRINE 8 MG in DEXTROSE 5% 250 ML IV PRN ×3 (00:57→11:32)
[2017-03-14] MEDS: BLOOD GLUCOSE MONITORING 1 DEV DEV FS SCH ×6 (01:00→11:27)
[2017-03-14 01:24] LABS: POTASSIUM 5.3 mmol/L (3.5-5.1)
--- NOTE | 2017-03-14 01:27 | NUR ---
CXR AT BEDSIDE DONE. URINE OUTPUT AT 0100 WAS 6 MLS. BS AT 0100 WAS 162.
[2017-03-14 01:28] LABS: BAND % (MANUAL) 44 % (0-8); EOSINOPHILS % (MANUAL) 2 % (0-4); LYMPHOCYTES % (MANUAL) 10 % (20-46); METAMYELOCYTES % 9 % (0-0); MONOCYTES % (MANUAL) 5 % (5-12); NEUTROPHILS % (MANUAL) 25 (43-65)
[2017-03-14 01:29] LABS: MYELOCYTES % 5 % (0-0)
[2017-03-14 01:34] LABS: APPEARANCE,URINE SLIGHTLY HAZY (CLEAR)
[2017-03-14 01:35] LABS: BACTERIA,URINE RARE /HPF (None Seen); MUCUS,URINE 4+ /LPF (None Seen); SQUAMOUS EPITHELIAL CELL,UR 0-3 /LPF (0-3 (FEW)); URINE AMORPHOUS URATE 4+ /HPF (None Seen); WBC,URINE 0-5 (RARE) /HPF (0-5)
[2017-03-14] MEDS: NACL 0.45% IV SCH ×2 (02:00→09:10)
[2017-03-14] MEDS: SODIUM BICARBONATE IV SCH ×2 (02:00→09:10)
--- NOTE | 2017-03-14 02:29 | NUR ---
NO URINE OUTPUT AT 0200. 3 AMPS OF SODIUM BICARBONATE IN 1/2 NS STARTED AT 0200 TO RUN 150 MLS/HR, PATIENT'S ABG AT AROUND 12MN SHOWED METABOLIC ALKALOSIS, CONTINUE ON VASOPRESSORS.
[2017-03-14] MEDS: PHENYTOIN 100 MG CAPER PO SCH (04:25)
--- NOTE | 2017-03-14 05:00 | NUR ---
URINE OUTPUT AT 0400 WAS 15 MLS. BLOOD SUGAR AT THIS TIME IS 156. SR ON THE MONITOR, VASOPRESSORS AND IV FLIUD CONTINUE.
[2017-03-14] MEDS: PIPER/TAZO 2.25GM/D5W PREMIX 50 ML IV SCH (05:22)
[2017-03-14 05:53] LABS: BLOOD GAS PCO2 30.1 mmHg (20-50); BLOOD GAS PH 7.184 (7.35-7.45)
[2017-03-14 05:54] LABS: BLOOD GAS BASE EXCESS -15.9 mmol/L (-2.0-2.0); BLOOD GAS HCO3 11.1 mmol/L; BLOOD GAS O2 SAT% 98.8 % (92.0-98.5)
[2017-03-14 06:11] LABS: HEMOGLOBIN 10.4 g/dL (12.0-16.0); MEAN CORPUSCULAR HEMOGLOBIN 29 pg (27-31); MEAN CORPUSCULAR HGB CONC 32 g/dL (33-37); MEAN CORPUSCULAR VOLUME 88 fL (80-94); PLATELET COUNT (AUTO) 109 K/uL (140-450); RED BLOOD CELL COUNT(AUTO) 3.62 MIL/uL (4.20-5.40); RED CELL DISTRIBUTION WIDTH 13.3 % (11.6-13.7); WHITE BLOOD COUNT (AUTO) 11.5 K/uL (4.8-10.8)
--- NOTE | 2017-03-14 06:14 | NUR ---
AM CARE PROVIDED, PATIENT PLACED IN SUPINE POSITION, VASOPRESSORS CONTINUE, ACCUCHECK DONE Q2H, NO SEIZURE ACTIVITY, NO RESPIRATORY DISTRESS, FLACC 0.
[2017-03-14 06:41] LABS: BILIRUBIN,DIRECT 0.9 mg/dL (0.0-0.3); CALCIUM 6.7 mg/dL (8.5-10.1); MAGNESIUM 1.1 mg/dL (1.8-2.4); PHOSPHORUS 4.6 mg/dL (2.5-4.9); POTASSIUM 4.7 mmol/L (3.5-5.1); TOTAL BILIRUBIN 1.1 mg/dL (0.0-1.0); TOTAL PROTEIN, SERUM 3.1 g/dL (6.4-8.2)
[2017-03-14 06:47] LABS: ANION GAP 19.6 (8-16); CARBON DIOXIDE 13.1 mmol/L (21-32)
[2017-03-14 07:05] LABS: APPEARANCE,URINE CLEAR (CLEAR); BILIRUBIN,URINE NEGATIVE (NEGATIVE); BLOOD, URINE 3+ (NEGATIVE); COLOR,URINE YELLOW (YELLOW); LEUKOCYTE ESTERASE ,URINE NEGATIVE (NEGATIVE); NITRITE, URINE NEGATIVE (NEGATIVE); PROTEIN,URINE 1+ (NEGATIVE); UGLUCOSE NEGATIVE (NEGATIVE); UROBILINOGEN,URINE 0.2 EU/dL (0.2 - 1)
[2017-03-14 07:10] LABS: BAND % (MANUAL) 45 % (0-8); EOSINOPHILS % (MANUAL) 6 % (0-4); LYMPHOCYTES % (MANUAL) 13 % (20-46); MONOCYTES % (MANUAL) 3 % (5-12); NEUTROPHILS % (MANUAL) 33 (43-65); OVALOCYTES 1+
[2017-03-14 07:13] LABS: CKMB RELATIVE INDEX 8.1 (0.0-2.5); CREATINE KINASE MB 25.3 ng/mL (0-3.6); INR 1.7 (0.8-1.2); PARTIAL THROMBOPLASTIN TIME 49.5 secs (22-35.6); PROTHROMBIN TIME 16.9 secs (10.8-13.4)
--- NOTE | 2017-03-14 07:15 | NUR ---
RECEIVED REPORT FROM NAA HEATON. PT NONRESPONSIVE, PUPILS DILATED. PT IS ETT TO VENT. FIO2: 100%, AC: 18, TV: 500, PEEP: 5. PT IS CURRENTLY ST ON THE MONITOR. PT HAS RIGHT FEMORAL TLC AND LEFT FEMORAL ARTERIAL LINE. PT IS ON VASOPRESSIN, LEVOPHED, NEOSYNEPHRINE AND ATIVAN DRIPS. NGT TO RIGHT NARE IN PLACE. SKIN IS INTACT. URINE OUTPUT CURRENTLY AT 10 ML AT THIS TIME. SAFETY PRECAUTIONS IN PLACE WITH BED IN LOWEST POSITION AND SIDERAILS UP. CALL LIGHT WITHIN REACH. WILL CONTINUE TO MONITOR CLOSELY. Addendum: 03/14/17 at 1438 by Cintia Toscano RN LOMBARDI CATHETER IN PLACE DRAINING TO GRAVITY DRAINAGE BAG. FLACC 0
[2017-03-14] MEDS: DEXT 5% /NACL 0.9% 1,000 ML IV SCH (07:23)
--- NOTE | 2017-03-14 07:24 | NUR ---
RECIVED PT ON VENT WITH SETTINGS CHARTED BREATH SOUNDS PRESENT BILAT WITH EXP RALES BILAT HOOPER PT WITH MIN AMT DARK SECS PT NON RESPONSIVE VENT PLUGGED INTO RED OUTLET AMBU BAG AT BEDSIDE WILL CONTINUE TO MONITOR PT ON VENT
--- NOTE | 2017-03-14 07:25 | NUR ---
RECEIVED REPORT FROM LAB [facility] FOR CRITICAL LAB RESULTS, BUN 4.0, TROPONIN 0.774 AND LACTIC ACID 6.9. PRIMARY RN MADE AWARE.
--- NOTE | 2017-03-14 07:27 | NUR ---
KODY FROM [facility] HERE TO SEE PT.
--- NOTE | 2017-03-14 07:40 | NUR ---
PT'S SON, MANE, PRESENT AT BEDSIDE.
--- NOTE | 2017-03-14 08:00 | NUR ---
URINE OUTPUT 25 ML AT THIS TIME.
[2017-03-14] MEDS ORDERED: SODIUM BICARBONATE 8.4% 50 MEQ/50 ML VIAL INJ SCH (08:10)
--- NOTE | 2017-03-14 08:20 | NUR ---
DR. WALTERS'S GROUP IN TO SEE PT. WILL FOLLOW UP ON ORDERS.
[2017-03-14] MEDS: VASOPRESSIN 20 UNITS in NACL 0.9% 250 ML IV SCH (08:56)
[2017-03-14] MEDS: PANTOPRAZOLE 40 MG INJ VIAL IVP SCH (08:57)
--- NOTE | 2017-03-14 09:00 | NUR ---
URINE OUTPUT 50 ML AT THIS TIME. URINE COLLECTED AND SENT TO LAB ORDERED.
--- NOTE | 2017-03-14 09:09 | NUR ---
DECREASDE FI02 TO .90 RN AWARE JAMAR ONE AWARE WELL
[2017-03-14 09:12] LABS: RBC,URINE 3-10 (FEW) /HPF (0-5)
[2017-03-14 09:13] LABS: BACTERIA,URINE 1+ /HPF (None Seen); SQUAMOUS EPITHELIAL CELL,UR 0-3 (FEW) /LPF (0-3 (FEW)); URINE AMORPHOUS URATE 1+ /HPF (None Seen); WBC,URINE 0-5 (RARE) /HPF (0-5)
[2017-03-14 09:35] LABS: ANION GAP 20.3 (8-16); CALCIUM 6.6 mg/dL (8.5-10.1); CARBON DIOXIDE 14.6 mmol/L (21-32); POTASSIUM 4.9 mmol/L (3.5-5.1)
[2017-03-14 09:40] LABS: APPEARANCE,URINE SL CLOUDY (CLEAR); BILIRUBIN,URINE NEGATIVE (NEGATIVE); BLOOD, URINE 3+ (NEGATIVE); COLOR,URINE YELLOW (YELLOW); LEUKOCYTE ESTERASE ,URINE TRACE (NEGATIVE); NITRITE, URINE NEGATIVE (NEGATIVE); PROTEIN,URINE 1+ (NEGATIVE); UGLUCOSE NEGATIVE (NEGATIVE); UROBILINOGEN,URINE 0.2 EU/dL (0.2 - 1)
--- NOTE | 2017-03-14 09:45 | NUR ---
FAMILY AND FRIENDS PRESENT AT BEDSIDE.
--- NOTE | 2017-03-14 09:50 | NUR ---
DR. LERNER IN TO SEE PT. WILL FOLLOW UP ON ORDERS.
--- NOTE | 2017-03-14 10:00 | NUR ---
URINE OUTPUT 60 ML AT THIS TIME.
[2017-03-14] MEDS: INSULIN LISPRO SLIDING SCALE 100 UNITS/ML VIAL SUBQ PRN ×2 (10:24→11:28)
[2017-03-14 10:34] LABS: RBC,URINE 11-20 (MOD) /HPF (0-5)
[2017-03-14 10:35] LABS: BACTERIA,URINE 1+ /HPF (None Seen); SQUAMOUS EPITHELIAL CELL,UR 4-10 (MOD) /LPF (0-3 (FEW)); URINE AMORPHOUS URATE 1+ /HPF (None Seen)
--- NOTE | 2017-03-14 10:50 | NUR ---
DR. MOYA IN TO SEE PT. WILL FOLLOW UP ON ORDERS.
--- NOTE | 2017-03-14 11:00 | NUR ---
URINE OUTPUT 75 ML AT THIS TIME
[2017-03-14] MEDS ORDERED: OSMITROL 25% 12.5 GM/50 ML VIAL IV SCH (11:05)
[2017-03-14] MEDS ORDERED: FUROSEMIDE 40 MG/4 ML VIAL IVP SCH (11:05)
--- NOTE | 2017-03-14 11:18 | NUR ---
FAMILY GATHERED FOR MOMENT OF SILENCE.
[2017-03-14] MEDS ORDERED: LACTATED RINGERS 1,000 ML IV SCH (11:50)
[2017-03-14] MEDS ORDERED: PROTAMINE 50 MG/5 ML VIAL IV PRN (11:55)
--- NOTE | 2017-03-14 11:55 | NUR ---
PT TRANSFERED TO OR VIA AMBU BAG WITH PEEP VALVE AT 10 NO ILL EFFECTS NOTED
--- NOTE | 2017-03-14 11:55 | NUR ---
PT TAKEN TO OR FOR ORGAN AND TISSUE HARVESTING. [facility] PRESENT. DR. ALMEIDA AND DR. WALTERS PRESENT. ENDORSED CARE TO GEORGINA SALINAS RN.
--- NOTE | 2017-03-14 12:30 | NUR ---
DR WORKMAN AT BEDSIDE PT EXTUBATED IN OR
--- NOTE | 2017-03-14 13:15 | NUR ---
CM NOTE CONCURRENT REVIEW FAXED TO [facility] / FAX# [phone], C: [phone]
--- NOTE | 2017-03-14 18:08 | NUR ---
THE BODY DATA SCIENTIST BY [facility] IN [place]. THE HOUSE SUPP [employer]I AND THE SECURITY [employer] ARE WITH THE MORTUARY,IN OR WHEN THE BODY WAS RELEASED.
== END 2017-03-15 13:52 | disposition expired ==
LOC: MED 00:02 → EEVIPCON 03:17 → MIC 03:17
PROVIDERS: ADMIT Student in an Organized Health Care Education/Training Program; ATTEND Student in an Organized Health Care Education/Training Program
PROC: 5A1945Z Respiratory Ventilation, 24-96 Consecutive Hours (ICD-10-PCS; principal; 2017-03-12)
PROC: 0BH17EZ Insertion of Endotracheal Airway into Trachea, Via Natural or Artificial Opening (ICD-10-PCS; 2017-03-12)
PROC: 5A12012 Performance of Cardiac Output, Single, Manual (ICD-10-PCS; 2017-03-12)
PROC: 06HM33Z Insertion of Infusion Device into Right Femoral Vein, Percutaneous Approach (ICD-10-PCS; 2017-03-12)
DX: I21.3 ST elevation (STEMI) myocardial infarction of unspecified site (principal); N17.0 Acute kidney failure with tubular necrosis; Z66 Do not resuscitate; Z51.5 Encounter for palliative care; E43 Unspecified severe protein-calorie malnutrition; G93.41 Metabolic encephalopathy; J96.01 Acute respiratory failure with hypoxia; G93.6 Cerebral edema; G93.5 Compression of brain; I50.43 Acute on chronic combined systolic (congestive) and diastolic (congestive) heart failure; I60.9 Nontraumatic subarachnoid hemorrhage, unspecified; K72.01 Acute and subacute hepatic failure with coma; G93.1 Anoxic brain damage, not elsewhere classified; D68.59 Other primary thrombophilia; G40.409 Other generalized epilepsy and epileptic syndromes, not intractable, without status epilepticus; E11.65 Type 2 diabetes mellitus with hyperglycemia; S09.8XXA Other specified injuries of head, initial encounter; I46.2 Cardiac arrest due to underlying cardiac condition; J01.80 Other acute sinusitis; N28.1 Cyst of kidney, acquired; E78.1 Pure hyperglyceridemia; R80.9 Proteinuria, unspecified; E87.6 Hypokalemia; E83.51 Hypocalcemia; G90.9 Disorder of the autonomic nervous system, unspecified; E83.39 Other disorders of phosphorus metabolism; G47.33 Obstructive sleep apnea (adult) (pediatric); E66.01 Morbid (severe) obesity due to excess calories; Z68.20 Body mass index [BMI] 20.0-20.9, adult; Z91.19 Patient's noncompliance with other medical treatment and regimen; Y93.89 Activity, other specified; Y92.89 Other specified places as the place of occurrence of the external cause; Z99.89 Dependence on other enabling machines and devices
CPT/HCPCS: 31500; 36415; 36556; 36600; 43753; 51702; 70450; 71010; 76705; 80048; 80053; 80076; 80185; 81001; 82150; 82247; 82248; 82330; 82550; 82553; 82803; 82948; 82977; 83036; 83605; 83615; 83690; 83735; 83880; 83930; 84100; 84436; 84439; 84443; 84479; 84484; 85025; 85610; 85730; 86886; 86900; 86901; 86920; 87040; 87070; 87077; 87081; 87086; 87186; 87205; 89220; 93005; 94003; 95816; 96365; 96366; 96368; 99291; C9113; J0171; J1165; J1265; J1644; J1815; J1940; J2060; J2150; J2370; J2543; J2760; J3480; J3490; J7030; J7042; J7060; J7120; Q0092